=== PATIENT | female | born 1945 | race Caucasian/White ===

== ENCOUNTER 2025-02-02 12:11 | Outpatient (CLI) | payer MEDICARE ==
[2025-02-02 12:30] LABS: ALV-art Gradient 115.505 mmHg (0-20); Actual Bicarbonate (HCO3a) 32.6 mEq/L (22-28); Analyzer IN Cardio CS ER; Base Excess (BEa) 6.6 mEq/L (-2.0 to +3.0); CO2 Tension 54.7 mmHg (35.0-45.0); Calcium, Ionized (arterial) 1.15 mmol/L (1.12-1.30); Critical Notified By: s.Bates RRT; Hematocrit-ABG 30 % (36.0-47.0); Hemoglobin (Hb) 10.1 g/dL (12.0-16.0); O2 Tension (PaO2), arterial 72.8 mmHg (> 70.0); Potassium - ABG Lab 4.19 mmol/L (3.70-5.30); Puncture Site Left Brachial artery; pH, Arterial 7.393 (7.35-7.45)
== END 2025-02-02 12:12 | disposition home or self-care (01) ==
LOC: CSHRAD 12:11
PROVIDERS: ATTEND Family Medicine
DX: J44.9 Chronic obstructive pulmonary disease, unspecified (principal); R44.3 Hallucinations, unspecified
CPT/HCPCS: 36600; 82805